=== PATIENT | male | born 1955 | race Two or more races ===

== ENCOUNTER 2019-04-27 02:32 | Inpatient (IN) | payer SELFPAY ==
[~2019-04-27] VITALS: Ht 188 cm; Wt 88.0 kg
--- NOTE | 2019-04-27 02:54 | NUR ---
[facility] FROM HOME TOP ER BED 9. AAOX4. AUSTR[place]IAN SPEAKING WITH FRIENDS AT BEDSIDE TO TRANSLATE. AMBULATORY ON STEADY GAIT. C/O HIGH BP AND CP. 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 PT PLACED ON MONITOR. MD AT BEDSIDE FOR EVAL. ORDERS RECEIVED NOTED AND CARRIED OUT. IV LINE OBTAINED ON THE LFA 18G. BLOOD DRAWN AND GIVEN TO ELECTRIC TRUCK DRIVER AT BEDSIDE.
[2019-04-27] MEDS ORDERED: IV NS 0.9% 500 ML BAG IV ONE (03:00)
[2019-04-27 03:01] LABS: BASOPHILS # (AUTO) 0.1 /CMM (0.0-0.2); BASOPHILS % (AUTO) 0.8 % (0.0-2.0); EOSINOPHILS % (AUTO) 0.7 % (0.0-6.0); HEMATOCRIT 43 % (39-51); HEMOGLOBIN 14.4 g/dL (13.5-17.5); LYMPHOCYTES # (AUTO) 1.5 /CMM (0.8-4.8); LYMPHOCYTES % (AUTO) 22.5 % (20.0-44.0); MEAN CORPUSCULAR HGB CONC 34 g/dl (31.0-36.0); MEAN CORPUSCULAR VOLUME 88 fL (80-96); MONOCYTES # (AUTO) 0.5 /CMM (0.1-1.30); MONOCYTES % (AUTO) 7.4 % (2.0-12.0); NEUTROPHILS # (AUTO) 4.5 /CMM (1.8-8.9); NEUTROPHILS % (AUTO) 68.6 % (43.0-81.0); PLATELET COUNT (AUTO) 191 /CMM (150-450); RED BLOOD CELL COUNT(AUTO) 4.88 MIL/uL (4.5-6.0); WHITE BLOOD COUNT (AUTO) 6.6 K/uL (4.3-11.0)
[2019-04-27 03:06] LABS: CALCIUM, SERUM 9.3 mg/dL (8.5-10.1); CARBON DIOXIDE 28 mmol/L (21-32); CHLORIDE 105 mmol/L (98-107); GLUCOSE 142 mg/dL (74-106); POTASSIUM 3.8 mmol/L (3.5-5.1); SODIUM SERUM 144 mmol/L (136-145); UREA NITROGEN, BLOOD 13 mg/dL (7-18)
--- NOTE | 2019-04-27 03:07 | NUR ---
ON ADDITION TO PREVIOUS NOTE. PT IS NOTED BRADYCARDIC. PT REPORTS THAT IT HAS BEEN HAVING LOW HR FROM THE PAST
[2019-04-27 03:19] LABS: ALANINE AMINOTRANSFERASE 31 U/L (12-78); ALKALINE PHOSPHATASE 61 U/L (46-116); ASPARTATE AMINOTRANSFERASE 16 U/L (15-37); B-TYPE NATRIURETIC PEPTIDE 406 PG/ML (0-125); BILIRUBIN,DIRECT 0.1 mg/dL (0.0-0.2); BILIRUBIN,TOTAL 0.2 mg/dL (0.2-1.0); TOTAL PROTEIN, SERUM 7.7 g/dL (6.4-8.2)
[2019-04-27 05:54] LABS: APPEARANCE,URINE Clear (CLEAR); BILIRUBIN,URINE Negative (NEGATIVE); BLOOD, URINE Negative Ery/uL (NEGATIVE); COLOR,URINE Yellow (YELLOW); KETONES,URINE Negative (NEGATIVE); LEUKOCYTE ESTERASE ,URINE Negative (NEGATIVE); NITRITE, URINE Negative (NEGATIVE); PH,URINE 6.5 (5.0-8.0); PROTEIN,URINE Negative (NEGATIVE); UGLUCOSE Negative (NEGATIVE); UROBILINOGEN,URINE 0.2 EU/dL (0.2)
[2019-04-27] MEDS ORDERED: ONDANSETRON HCL/PF 4 MG/2 ML VIAL IVP PRN (06:00)
[2019-04-27] MEDS ORDERED: MAG HYDROX/AL HYDROX/SIMETH 30 ML UDC PO PRN (06:00)
[2019-04-27] MEDS ORDERED: NITROGLYCERIN 0.4 MG/TAB BOTTLE SL PRN (06:00)
[2019-04-27] MEDS ORDERED: DOCUSATE SODIUM 100 MG CAPSULE PO PRN (06:00)
[2019-04-27] MEDS ORDERED: ACETAMINOPHEN 325 MG TABLET PO PRN (06:00)
[2019-04-27] MEDS ORDERED: MORPHINE SULFATE INJ 2 MG/ML DISP.SYRIN IV PRN (06:00)
--- NOTE | 2019-04-27 06:46 | NUR ---
ACCORDING TO NURSING SUP. NO NURSES AVAILABLE AT THIS TIME. WILL CALL BACK SHORTLY
--- NOTE | 2019-04-27 07:25 | NUR ---
PT ENDORSED TO FREDI REED FOR SANDRITA
--- NOTE | 2019-04-27 07:30 | NUR ---
PT REMAIN CALM AND COOPERATIVE. PT IS ABLE TO VOID 300ML CLEAR YELLOW URINE
--- NOTE | 2019-04-27 07:40 | NUR ---
ROOM GIVEN 111-2 MAKENNA
--- NOTE | 2019-04-27 07:50 | NUR ---
TELE1/RN REPORT FROM ER REPORT GIVEN BY ER NURSE ANTHONY FOR PT TO BE ADMITTED FOR CHEST PAIN AND HIGH BLOOD PRESSURE, UNDER THE CARE OF Charles BARROW AWAITING FOR PT'S ARRIVAL.
--- NOTE | 2019-04-27 07:50 | NUR ---
REPORT GIVEN TO FREDI MARTINEZ FOR SANDRITA.
[2019-04-27 08:00] VITALS: BP 164/74
[2019-04-27] MEDS ORDERED: ROSU40TA PO (08:01)
[2019-04-27] MEDS ORDERED: CAPT25TA3 PO (08:01)
[2019-04-27] MEDS ORDERED: METF850T PO (08:01)
[2019-04-27] MEDS ORDERED: AMLO1TAB12 PO (08:01)
[2019-04-27] MEDS ORDERED: CLOP75TA15 PO (08:01)
--- NOTE | 2019-04-27 08:07 | NUR ---
MAKENNA/ALTERATIONS MANAGER TO MAKENNA - ROOM 111#2 PT ARRIVED VIA GURNEY, PT WALKED UP TO HIS BED WITH STEADY GAIT. A/O X 4, [place] SPEAKING, UNDERSTANDS VERY LITTLE BELARUSIAN. DENIES ANY CHEST PAIN AT THIS TIME. ON ROOM AIR SATURATING @ 96%, RESPIRATIONS EVEN & UNLABORED, BREATH SOUNDS CLEAR. PT PLACED ON TELE AND PACING PADS WITH MONITOR AT BEDSIDE. SINUS BRENNAN WITH BBB AND SECOND DEGREE AV BLOCK, HR 40, ASYMPTOMATIC. IV SITE INTACT FLUSHED, PATENT WITH NO S/S OF INFECTION, SL. ADMITTING PROTOCOLS IN PROGRESS. PT WITH FRIEND AND PHYSIOTHERAPIST'S ASSISTANT AT BEDSIDE, PT ORIENTED TO HIS SURROUNDINGS. PLAN OF CARE MADE KNOWN TO PT. CL WITHIN REACHED AND SAFETY MAINTAINED. ON GOING MONITORING.
[2019-04-27] MEDS: ASPIRIN 81 MG TAB.CHEW PO SCH (09:14)
--- NOTE | 2019-04-27 09:15 | NUR ---
TELE1/RN ROUNDS - DR. SANFORD UPDATED PT'S CONDITION. PT SEEN & EXAMINED BY DR. SANFORD. NO NEW ORDERS RECEIVED AT THIS TIME. MONITORING CONTINUED.
[2019-04-27 12:00] VITALS: BP 141/68
--- NOTE | 2019-04-27 12:00 | NUR ---
TD/RN MYOCARDIAL STRESS TEST PT LEFT [facility] UNIT IN STABLE CONDITION FOR MYOCARDIAL STRESS TEST VIA WHEELCHAIR ACCOMPANIED BY MYSELF AND NUCLEAR MED BI CONSULTANT.
--- NOTE | 2019-04-27 14:30 | NUR ---
MAKENNA/RN S/P MYOCARDIAL STRESS TEST PT RETURNED TO [facility] IN STABLE CONDITION S/P S/P MYOCARDIAL STRESS TEST. MONITORING CONTINUED.
--- NOTE | 2019-04-27 14:48 | NUR ---
NM CARDIAC STRESS TEST WAS COMPLETED. TECH:RB.
[2019-04-27 16:00] VITALS: BP_SYST 131; BP_DIAS 67; BP_DIAS 69
--- NOTE | 2019-04-27 16:00 | NUR ---
TD/RN AFTERNOON ROUNDS NO ACUTE CHANGE OF CONDITION. VERIFIED HOME MEDS WITH A HELP OF AN HEALTHCARE ADMINISTRATION INTERNSHIP. ALSO REQUESTED SLEEP AID, PRIMARY MD NOTIFIED OF THE REQUEST. PT WILL HAVE HIS FRIEND BRING HIS CRESTOR MEDICATION.
[2019-04-27] MEDS ORDERED: DEXTROSE 50%-WATER 50 ML DISP.SYRIN IV PRN (17:30)
[2019-04-27] MEDS: BLOOD SUGAR DIAGNOSTIC 1 EACH STRIP IN SCH ×2 (17:46→22:32)
[2019-04-27] MEDS: INSULIN REGULAR, HUMAN 100 UNIT/ML 3 ML VIAL SQ PRN (18:12)
--- NOTE | 2019-04-27 19:31 | NUR ---
MAKENNA/RN AM SHIFT END NOTES ALL NEEDS MET. NO ACUTE CHANGE OF CONDITION NOTED DURING THE SHIFT. PT ENDORSED TO PM NURSE TO CONTINUE CARE. ALSO ENDORSED TO FOLLOW-UP WITH PT'S REQUEST FOR SLEEP AID AND STRONGER PAIN MEDICATION, WELL PT'S HOME MEDS (CRESTOR). CL WITHIN REACHED AND SAFETY MAINTAINED.
[2019-04-27 20:00] VITALS: BP_SYST 139; BP_DIAS 69; BP_DIAS 72
--- NOTE | 2019-04-27 20:00 | NUR ---
MAKENNA RN NOTE PT IN BED AWAKE. A/O X 4, PR[place]IG SPEAKING, NO DISTRESS OR DISCOMFORT NOTED. DENIES PAIN. ON TELE MONITOR SB WITH 2ND DEGREE BBB HR 37. RFA # 18G SL INTACT AND PATENT. PLANNER INTERNSHIP AT BED SIDE. ALL NEEDS ATTENDED SIDE RAILS UP X 2 AND CALL LIGHT WITHIN REACH. CONTINUE TO MONITOR HIM. Addendum: 04/28/19 at 0019 by BRISSA JO RN PT REMAIN ASYMPTOMATIC EVEN HR IS LOW. .
[2019-04-27] MEDS ORDERED: SIMVASTATIN 20 MG TABLET PO SCH (22:00)
--- NOTE | 2019-04-27 23:30 | NUR ---
MAKENNA RN NOTE PT NOTED. SB HR 31, PARIS SILVA UNDERWRITING DIRECTOR INFORMED. NO NEW ORDER GIVEN, NO ORDER FOR ICU TRANSFER. JUST CONTINUE TO OBSERVE HIM IN [facility].
[2019-04-28] VITALS: BP 134/64
--- NOTE | 2019-04-28 00:03 | NUR ---
MAKENNA RN NOTE PT IN BED ASLEEP, AROUSBLE. DENIES ANY DISCOMFORT OR PAIN. WHEN AWAKE HR GOES UP TO 40'S THEN DROP BACK TO 30'S WHEN GO BACK TO SLEEP. CONTINUE TO MONITOR HIM.
[2019-04-28 04:00] VITALS: BP 140/68
--- NOTE | 2019-04-28 06:44 | NUR ---
MAKENNA RN NOTE PT IN BED AWAKE. NO DISTRESS OR DISCOMFORT NOTED. DENIES PAIN. ON TELE SB, BBB AND 2ND DEGREE BBB 47. ALL NEEDS ATTENDED. SIDE RAILS UP X 2 AND CALL LIGHT WITHIN REACH. WILL ENDORSE TO DAY SHIFT NURSE FOR CONTINUE TO CARE.
[2019-04-28 07:38] LABS: BASOPHILS % (AUTO) 0.8 % (0.0-2.0); EOSINOPHILS % (AUTO) 1.5 % (0.0-6.0); HEMATOCRIT 45 % (39-51); HEMOGLOBIN 14.6 g/dL (13.5-17.5); LYMPHOCYTES # (AUTO) 2.1 /CMM (0.8-4.8); MEAN CORPUSCULAR HGB CONC 33 g/dl (31.0-36.0); MEAN CORPUSCULAR VOLUME 89 fL (80-96); MONOCYTES # (AUTO) 0.5 /CMM (0.1-1.30); MONOCYTES % (AUTO) 7.7 % (2.0-12.0); NEUTROPHILS # (AUTO) 3.8 /CMM (1.8-8.9); PLATELET COUNT (AUTO) 200 /CMM (150-450); RED BLOOD CELL COUNT(AUTO) 5.03 MIL/uL (4.5-6.0); WHITE BLOOD COUNT (AUTO) 6.6 K/uL (4.3-11.0)
[2019-04-28 07:53] LABS: ALBUMIN 3.7 g/dL (3.4-5.0); BILIRUBIN,TOTAL 0.4 mg/dL (0.2-1.0); CREATININE 1.1 mg/dL (0.6-1.3); MAGNESIUM 1.9 mg/dL (1.8-2.4); PHOSPHORUS 3.2 mg/dL (2.5-4.9); POTASSIUM 3.7 mmol/L (3.5-5.1); TOTAL PROTEIN, SERUM 7.4 g/dL (6.4-8.2)
[2019-04-28 07:59] LABS: THYROID STIMULATING HORMONE 0.887 uIU/mL (0.358-3.74)
[2019-04-28 08:00] VITALS: BP_SYST 157; BP_SYST 180; BP_DIAS 69; BP_DIAS 91
[2019-04-28] MEDS: BLOOD SUGAR DIAGNOSTIC 1 EACH STRIP IN SCH ×3 (08:00→16:41)
--- NOTE | 2019-04-28 08:00 | NUR ---
MAKENNA/RN AM SHIFT INITIAL NOTES RECEIVED PT AWAKE SITTING IN BED. A/O X 4, SOUTH KOREAN SPEAKING ONLY. THROUGH AN CHEMICAL WORKER DENIES ANY SYMPTOMS AT THIS TIME. ON ROOM AIR, SATURATING @ 96%, RESPIRATIONS EVEN & UNLABORED, LUNG SOUNDS CLEAR. ON TELE WITH SINUS BRENNAN WITH BBB AND SECOND DEGREE AV BLOCK, HR 36, ASYMPTOMATIC. PACING PADS AND MONITOR AT BEDSIDE. IV SITE INTACT, FLUSHED, INTACT, NO S/S OF INFECTION. PT IS COMFORTABLE, SCHEDULED AM MEDS TO BE GIVEN. CL WITHIN REACHED AND SAFETY MAINTAINED. ON GOING MONITORING.
--- NOTE | 2019-04-28 08:30 | NUR ---
MAKENNA/RN CT ANGIOGRAM WITH 3D IMAGING PT HAD SPOKEN TO DR. SANFORD REGARDING CT ANGIOGRAM PROCEDURE AND AGREED. THROUGH AN SUPERVISOR CUSTOMER COMPLAINT SERVICE I EXPLAINED WHAT THE CONSENT FROM WAS FOR AND PT SIGNED IT. CONSENT PLACED ON PT'S CHART. DR. SANFORD NOTIFIED. MONITORING CONTINUED.
[2019-04-28] MEDS ORDERED: CLOPIDOGREL BISULFATE 75 MG TABLET PO SCH (09:00)
[2019-04-28] MEDS ORDERED: BENAZEPRIL HCL 5 MG TABLET PO PRN (09:00)
[2019-04-28] MEDS: ASPIRIN 81 MG TAB.CHEW PO SCH (09:00)
[2019-04-28 12:00] VITALS: BP 115/84
--- NOTE | 2019-04-28 12:43 | NUR ---
TELE1/RN OFF UNIT FLOOR - CT PT LEFT TELE1 UNIT IN STABLE CONDITION VIA WHEELCHAIR FOR CT ANGIOGRAM.
[2019-04-28] MEDS ORDERED: CT SWABBABLE VALVE TRANS SET 1 EA INFUS.SET MC ONE (12:59)
[2019-04-28] MEDS ORDERED: NITROGLYCERIN 0.4 MG/TAB BOTTLE ONE (12:59)
[2019-04-28] MEDS ORDERED: IOHEXOL-350 100 ML VIAL IV ONE ×2 (12:59→13:22)
[2019-04-28] MEDS ORDERED: IV NS 0.9% 250 ML IV ONE (12:59)
--- NOTE | 2019-04-28 13:40 | NUR ---
ICU/RN: FIRST SCAN COMPLETED, PER REPEAT SCAN NEEDED DUE TO MOTION. HR STABLE, PT INSTRUCTED TO HOLD BREATH. WILL REPEAT SCAN, NO MEDICATIONS FOR HR NEEDED. PT HR 46-60.
--- NOTE | 2019-04-28 13:45 | NUR ---
TELE1/RN BACK TO UNIT PT RETURNED TO TELE1 UNIT POST CT ANGIOGRAM. MONITORING CONTINUED.
[2019-04-28 16:00] VITALS: BP 174/93
[2019-04-28] MEDS ORDERED: ZOLPIDEM TARTRATE 5 MG TABLET PO PRN (16:00)
[2019-04-28 16:37] VITALS: BP 174/93
[2019-04-28] MEDS: INSULIN REGULAR, HUMAN 100 UNIT/ML 3 ML VIAL SQ PRN (16:42)
[2019-04-28] MEDS ORDERED: HYDR-4076 PO (16:45)
--- NOTE | 2019-04-28 18:22 | NUR ---
TELE1/MANAGER CCU - HOME DISCHARGE INSTRUCTIONS GIVEN TO TO PATIENT VIA FRIEND/CORSET FITTER. PT VERBALIZED UNDERSTANDING. DISCHARGE DOCUMENTS AND PERSONAL BELONGINGS RETURNED TO PT, INVENTORY LOG SIGNED OFF. IV SITE REMOVED, PRESSURE DRESSING APPLIED, NO S/S OF INFECTION. IB BANDS REMOVED. PT LEFT UNIT AMBULATORY WITH STEADY GAIT WITH HIS FRIEND.
[2019-04-28] MEDS ORDERED: CRESTOR 40 MG PO SCH (22:00)
== END 2019-04-28 18:23 | disposition home or self-care (01) | DRG 303 ==
LOC: ER 02:33 → TELE1 07:55 → TELE-TD 10:56 → TELE1 04-28 09:50
PROVIDERS: ADMIT Nurse Practitioner Acute Care; ATTEND Nurse Practitioner Acute Care
DX: I25.10 Atherosclerotic heart disease of native coronary artery without angina pectoris (principal); J98.11 Atelectasis; I10 Essential (primary) hypertension; E78.5 Hyperlipidemia, unspecified; R00.1 Bradycardia, unspecified; Z79.02 Long term (current) use of antithrombotics/antiplatelets; E11.9 Type 2 diabetes mellitus without complications
CPT/HCPCS: 36415; 71045-TC; 75574; 80048-TC; 80053-TC; 80061-TC; 80076-TC; 81000-TC; 82962-TC; 83735-TC; 83880; 84100-TC; 84443-TC; 84484-TC; 85025-TC; 85730-TC; 87081-TC; 93307-TC; A6403; A9502; G0378; J1815; J7040; J7050; Q9967